=== PATIENT | male | born 1960 | race African-American/Black ===

== ENCOUNTER 2019-03-01 07:35 | Emergency (ER) | payer MEDICARE, MEDICAID ==
[~2019-03-01] VITALS: Ht 177.8 cm; Wt 73.0 kg
[2019-03-01] MEDS ORDERED: LORAZEPAM 1MG TABLET PO ONE (08:15)
[2019-03-01 09:05] LABS: BASOPHILS % 0.5 % (0.0-2.0); EOSINOPHILS % 0.5 % (0.0-5.0); HEMATOCRIT. 45.7 % (42.0-52.0); HEMOGLOBIN. 15.9 g/dL (14.0-18.0); MEAN CORPUSCULAR HEMOGLOBIN 30.3 pg (28.0-32.0); MEAN PLATELET VOLUME 8.1 fl (7.4-10.4); MONOCYTES % 9.8 % (2.0-8.0); NEUTROPHILS % 80.2 % (40.0-76.0); PLATELET 228 x1000/uL (130-400); RED BLOOD CELL COUNT 5.26 mill/uL (4.7-6.1)
[2019-03-01 09:08] LABS: PROTHROMBIN TIME 10.7 sec (9.6-11.0)
[2019-03-01 09:10] LABS: CHLORIDE 109 mEq/L (98-107)
[2019-03-01] MEDS ORDERED: SODIUM CHLORIDE 0.9% 1,000 ML IV ONE (09:30)
[2019-03-01] MEDS ORDERED: FAMOTIDINE 20MG/2ML VIAL IV ONE (09:30)
[2019-03-01 09:46] LABS: CLARITY URINE TURBID (CLEAR); COLOR URINE DARK YELLOW (YELLOW); KETONES URINE TRACE (NEGATIVE); LEUKOCYTE ESTERASE URINE NEGATIVE (NEGATIVE); NITRITE URINE NEGATIVE (NEGATIVE); OCCULT BLOOD URINE 3+ (NEGATIVE); PROTEIN URINE 2+ (NEGATIVE); SPECIFIC GRAVITY URINE 1.044 (1.005-1.030)
[2019-03-01 11:07] VITALS: BP 118/70
== END 2019-03-01 11:34 | disposition home or self-care (01) ==
LOC: ER 07:35
DX: F15.10 Other stimulant abuse, uncomplicated (principal); K76.0 Fatty (change of) liver, not elsewhere classified; F20.9 Schizophrenia, unspecified
CPT/HCPCS: 36415; 76705; 80053; 81003; 83690; 85025; 85610; 93005; 96374; 99284; J3490